=== PATIENT | male | born 1950 | race Two or more races ===

== ENCOUNTER 2017-12-03 07:53 | Emergency (ER) | payer OTHER ==
[~2017-12-03] VITALS: Ht 170.2 cm; Wt 61.7 kg
[~2017-12-03 07:53] MED LIST: INTEGRA F CAPS1 EACH PO; PERCOCET 5-3251 EACH PO; PLAVIX75 MG PO
== END 2017-12-03 14:43 | disposition home or self-care (01) ==
LOC: ER 07:53
DX: T81.31XS Disruption of external operation (surgical) wound, not elsewhere classified, sequela (principal); L08.89 Other specified local infections of the skin and subcutaneous tissue; T81.4XXS Infection following a procedure, sequela; B96.20 Unspecified Escherichia coli [E. coli] as the cause of diseases classified elsewhere; B95.2 Enterococcus as the cause of diseases classified elsewhere; Y83.8 Other surgical procedures as the cause of abnormal reaction of the patient, or of later complication, without mention of misadventure at the time of the procedure

== ENCOUNTER 2020-12-19 10:18 | Emergency (ER) | payer OTHER ==
[~2020-12-19] VITALS: Ht 170.2 cm; Wt 83.9 kg
[2020-12-19] MEDS ORDERED: ADULT LOW DOSE81 M1 (11:21)
[2020-12-19] MEDS ORDERED: SERTRALINE20 MG/1 ML (11:21)
[2020-12-19] MEDS ORDERED: VASOTEC10 MG (11:21)
== END 2020-12-19 18:30 | disposition home or self-care (01) ==
LOC: ER 10:18 → EDBD 10:40 → ER 18:30
DX: K43.3 Parastomal hernia with obstruction, without gangrene (principal); K42.9 Umbilical hernia without obstruction or gangrene; K94.09 Other complications of colostomy; Y83.3 Surgical operation with formation of external stoma as the cause of abnormal reaction of the patient, or of later complication, without mention of misadventure at the time of the procedure

== ENCOUNTER 2021-01-10 10:00 | Inpatient (IN) | payer OTHER ==
[~2021-01-10] VITALS: Ht 170.2 cm; Wt 185.0 kg
[~2021-01-10 10:00] MED LIST changes: +ADULT LOW DOSE81 M1 PO; +SERTRALINE20 MG/1 ML; +VASOTEC10 MG PO
[2021-01-10] MEDS ORDERED: ATORVASTA PO (14:09)
[2021-01-17] MEDS ORDERED: ATORVASTATIN CA10 MG PO (10:25)
[2021-01-17] MEDS ORDERED: COMBIGAN EYE DRO5 ML (10:27)
[2021-01-25] MEDS ORDERED: INTEGRA F CAPS1 EACH PO (07:55)
[2021-01-25] MEDS ORDERED: PRILOSEC10 MG PO (07:55)
== END 2021-01-25 11:52 | disposition home or self-care (01) | DRG 355 ==
LOC: O/R 01-17 06:13 → SURH 01-17 06:13
PROVIDERS: ADMIT Surgery; ATTEND Surgery
PROC: 4A12X4Z Monitoring of Cardiac Electrical Activity, External Approach (ICD-10-PCS; 2021-01-17)
PROC: 0WUF4JZ Supplement Abdominal Wall with Synthetic Substitute, Percutaneous Endoscopic Approach (ICD-10-PCS; principal; 2021-01-17 07:00)
PROC: 30233N1 Transfusion of Nonautologous Red Blood Cells into Peripheral Vein, Percutaneous Approach (ICD-10-PCS; 2021-01-19)
PROC: 3E0F7SF Introduction of Other Gas into Respiratory Tract, Via Natural or Artificial Opening (ICD-10-PCS; 2021-01-20)
DX: K43.5 Parastomal hernia without obstruction or gangrene (principal); I10 Essential (primary) hypertension; D50.0 Iron deficiency anemia secondary to blood loss (chronic)

== ENCOUNTER 2021-01-16 06:10 | Day surgery (SDC) | payer OTHER ==
[~2021-01-16 06:10] MED LIST changes: +ATORVASTA PO
[2021-01-17] MEDS ORDERED: ATORVASTATIN CA10 MG PO (10:25)
[2021-01-17] MEDS ORDERED: COMBIGAN EYE DRO5 ML (10:27)
== END 2021-01-16 10:00 | disposition home or self-care (01) ==
LOC: AMB-ENDOS 06:10
PROVIDERS: ATTEND Surgery
DX: K62.89 Other specified diseases of anus and rectum (principal); Z93.3 Colostomy status

== ENCOUNTER 2025-01-31 15:28 | Emergency (ER) | payer OTHER ==
[~2025-01-31] VITALS: Ht 170.2 cm; Wt 72.6 kg
[~2025-01-31 15:28] MED LIST changes: +ATORVASTATIN CA10 MG PO; +COMBIGAN EYE DRO5 ML; +PRILOSEC10 MG PO
[2025-01-31] MEDS ORDERED: EZALLOR SPRINKLE5 MG PO (15:51)
[2025-01-31] MEDS ORDERED: PLAVIX75 MG PO (15:52)
[2025-01-31] MEDS ORDERED: ONDANSETRON HCL 2 MG/ML VIAL IV ONE (17:30)
[2025-01-31] MEDS ORDERED: FAMOtidine 10 MG/ML (4ML VIAL) IV ONE (17:30)
[2025-01-31] MEDS ORDERED: 0.9 % SODIUM CHLORIDE 1,000 ML IV ONE (17:30)
[2025-01-31] MEDS ORDERED: MORPHINE SULFATE 2 MG/ML CARTRIDGE IV ONE (17:30)
[2025-01-31 19:19] LABS: HEMATOCRIT 44.6 % (39.0-48.0); MEAN CELL VOLUME 87.8 fL (80.0-100.00); MEAN CORPUSCULAR HEMOGLOBIN 29.4 pg (27.00-32.0); MEAN CORPUSCULAR HGB CONC 33.5 g/dl (32.0-36.0); PLATELET COUNT 335 K/uL (150-450); RED BLOOD COUNT 5.09 M/uL (4.00-6.00)
[2025-01-31 19:23] LABS: PH,URINE 5.5 (5.0-8.0); URINE APPEARANCE Clear; URINE BILIRRUBIN Negative (NEGATIVE); URINE BLOOD Trace; URINE COLOR Yellow; URINE GLUCOSE Negative (NEGATIVE); URINE KETONE Negative (NEGATIVE); URINE LEUKOCYTE Large; URINE NITRATE Positive; URINE PROTEIN Negative (NEGATIVE)
[2025-01-31 19:27] LABS: URINE EPITHELIAL CELLS 5.5 uL (0.0-38.8); URINE RBC 2.9 uL (0.0-20.8); URINE WBC 216.2 uL (0.0-23.2)
[2025-01-31 19:40] LABS: INR 1.1; PARTIAL THROMBOPLASTIN TIME 28.1 SECONDS (22.0-34.0); PROTHROMBIN TIME 11.9 SECONDS (9.0-11.5)
[2025-01-31 19:43] LABS: URINE BACTERIA > 9821.5 uL (0.0-1933)
[2025-01-31 19:45] LABS: ALBUMIN 3.5 gm/dL (3.4-5.0); BILIRUBIN TOTAL 0.83 mg/dL (0.3-1.2); CALCIUM 9.4 mg/dL (8.5-10.1); CREATININE SERUM 0.9 mg/dL (0.70-1.30); GFR 82.49; GLOBULINA 4.3 G/DL (2.4-3.5); POTASSIUM 3.14 mEq/L (3.5-5.1); TOTAL PROTEIN 7.8 gm/dL (6.4-8.2)
[2025-01-31] MEDS ORDERED: KETOROLAC TROMETHAMINE 30 MG VIAL IU ONE (21:00)
[2025-01-31] MEDS ORDERED: PIPERACILLIN/TAZOBACTAM SODIUM 3.375 GM VIAL IV ONE (22:45)
[2025-02-01] MEDS ORDERED: MIRALAX17 GM PO (04:47)
[2025-02-01] MEDS ORDERED: CIPRO500 MG PO (04:47)
== END 2025-02-01 05:39 ==
LOC: ER 15:28
PROVIDERS: General Practice
DX: K59.00 Constipation, unspecified (principal); Z93.2 Ileostomy status; I10 Essential (primary) hypertension; Z86.73 Personal history of transient ischemic attack (TIA), and cerebral infarction without residual deficits; R30.0 Dysuria; R10.9 Unspecified abdominal pain
CPT/HCPCS: 36415; 74177; 96365; 96366; 99284; J1885; J2270; J2405; J2543; J3490; J7030; Q9965